=== PATIENT | male | born 1955 | race Caucasian/White ===

== ENCOUNTER → 2019-09-07 08:03 | Outpatient (BNVA) | payer OTHER, SELFPAY | PROVIDERS: Family Provider Family Medicine; PCP Family Medicine; Visit Provider Urology | DX: R33.9 Retention of urine, unspecified (principal); N30.80 Other cystitis without hematuria; N40.1 Benign prostatic hyperplasia with lower urinary tract symptoms; N13.8 Other obstructive and reflux uropathy | CPT/HCPCS: 81001 ==

== ENCOUNTER → 2020-09-27 07:55 | Outpatient (BNVA) | payer MEDICARE, SELFPAY | PROVIDERS: Family Provider Family Medicine; PCP Family Medicine; Visit Provider Urology | DX: Z12.5 Encounter for screening for malignant neoplasm of prostate (principal); N30.80 Other cystitis without hematuria; N40.1 Benign prostatic hyperplasia with lower urinary tract symptoms; N13.8 Other obstructive and reflux uropathy; R33.9 Retention of urine, unspecified; R35.1 Nocturia | CPT/HCPCS: 81003; G0103 ==

== ENCOUNTER 2021-01-30 14:34 | Outpatient (CLI) | payer MEDICARE, SELFPAY ==
--- NOTE | 2021-01-30 14:41 | XR_ITS ---
WS: [id number] HAND RIGHT TECHNIQUE: 3 views of the right hand CLINICAL INFORMATION: RIGHT FINGER/WRIST INJURY COMPARISON: None. FINDINGS: Transverse fracture involving the distal fourth phalanx at the base. Mild widening with dorsal displa cement of the distal fragment on the lateral view measuring 3 mm. No other visualized fractures. Advanced osteoarthritis first CMC and STT. XR/XR hand RT min 3V* [id number] IMPRESSION: Transverse slightly displaced fracture involving the distal phalanx fourth fing er.
--- NOTE | 2021-01-30 14:41 | XR_ITS ---
WS: [id number] ANKLE LEFT TECHNIQUE: 3 views of the left ankle CLINICAL INFORMATION: LEFT ANKLE PAIN COMPARISON: FINDINGS: Postoperative changes prior total ankle arthroplasty. Stable hardware with peripheral lucency about t he tibial component progressed compared to the prior examination. Talar dome prosthesis is unchanged with chronic flattening of the talar dome. Sclerosis of the talocalcaneal articulation. Stable loose bodies along the posterior tibia at the tibiotalar joint. Advanced subchondral cystic changes involvi ng the medial and lateral malleolus progressed compared to . XR/XR ankle LT min 3V* [id number] IMPRESSION: 1. Postoperative changes left total ankle arthroplasty with increased lucency about the tibial component. Talar prosthesis appears unchanged. 2. Sclerosis and subchondral cystic changes involving the medial and lateral m alleolus have progressed. 3. Well-circumscribed loose bodies along the retrotalar recess.
== END 2021-01-30 14:35 | disposition home or self-care (01) ==
PROVIDERS: PCP Family Medicine; Visit Provider Family Medicine
DX: M25.572 Pain in left ankle and joints of left foot (principal); S62.634A Displaced fracture of distal phalanx of right ring finger, initial encounter for closed fracture; X58.XXXA Exposure to other specified factors, initial encounter
CPT/HCPCS: 73130; 73610

== ENCOUNTER 2021-03-27 09:18 | Outpatient (CLI) | payer MEDICARE, SELFPAY ==
--- NOTE | 2021-03-27 09:32 | XR_ITS ---
WS: [id number] ABDOMEN KUB CLINICAL INFORMATION: Renal/ureteral calculi. COMPARISON: None. FINDINGS: Lumbar scoliosis convex right. Bilateral renal parenchymal calculi partially visualized sim ilar to 2019. This is partially obscured by bowel. Largest calculus measure approximately 7 mm on the right. No visualized ureteral calculi. Normal bowel gas pattern. Scattered air and normal caliber small and large bowel. No significant leigh l distention. XR/XR KUB [id number] Impression: Bilateral renal parenchymal calculi partially visualized similar to 2019. This is partially obscured by bowel. This can be further evaluated with renal stone protocol CT.
== END 2021-03-27 09:19 | disposition home or self-care (01) ==
PROVIDERS: PCP Family Medicine; Visit Provider Urology
DX: N20.2 Calculus of kidney with calculus of ureter (principal)
CPT/HCPCS: 74018

== ENCOUNTER 2021-05-02 12:38 | Outpatient (CLI) | payer MEDICARE, SELFPAY ==
--- NOTE | 2021-05-02 12:43 | XR_ITS ---
WS: [id number] LEFT SHOULDER: 3 VIEW(S) TECHNIQUE: Internal and external rotation with Y view. HISTORY: UNSPECIFIED INJURY OF LEFT SHOULDER AND UPPER ARM COMPARISON: None available. No acute fracture identified. There is mild deformity and flattening of the posterior lateral humeral head and subchondral cystic changes. The flattening may be due to remote nondisplaced fracture with healing. There is also moderate glenohumeral joint space narrowing with osteophytes and bony sclerosi s. There are several small loose bodies or calcific densities in the axillary pouch. Severe narrowing of the AC joint with mild bony hypertrophy. Mild chondrocalcinosis is noted along the superior humer al head. LEFT upper lung is clear. XR/XR shoulder LT min 2V* [id number] IMPRESSION: 1. Severe glenohumeral joint osteoarthritis. 2. Moderate AC joint arthritis. 3. Mild flattening and deformity with subchondral cystic changes along the pos terior lateral humeral head. Suspect remote fracture with healing. 4. Several small loose bodies in the axillary pouch.
== END 2021-05-02 12:39 | disposition home or self-care (01) ==
PROVIDERS: PCP Family Medicine; Visit Provider Family Medicine
DX: S49.92XA Unspecified injury of left shoulder and upper arm, initial encounter (principal); X58.XXXA Exposure to other specified factors, initial encounter; M19.012 Primary osteoarthritis, left shoulder
CPT/HCPCS: 73030

== ENCOUNTER 2021-05-14 10:02 | Outpatient (CLI) | payer MEDICARE, SELFPAY ==
--- NOTE | 2021-05-14 10:14 | XR_ITS ---
WS: [id number] XR ankle RT min 3V* [id number] REASON FOR EXAM: RT ANKLE PAIN FINDINGS: Complex right ankle with arthroplasty. Comparison examination 01/18/2009. Compared to the previous examination a large lucent area has developed in the lateral malleolus. Sarah lar abnormality in the medial malleolus. Significant lucency has developed around the lateral margin of the articular plate of the tibial component of the arthroplasty. Severe degenerative arthropathy has developed in the subtalar joint compared to the previous examinat ion. Cystic changes developing in the bone underlying the talar component of the arthroplasty. The an terior margin of the talar component is marginated by increased lucency in the bone. XR/XR ankle RT min 3V* [id number] IMPRESSION: Complex right ankle with arthroplasty and progressive bone and joint changes as above.
--- NOTE | 2021-05-14 10:14 | XR_ITS ---
WS: [id number] XR ankle LT min 3V* [id number] REASON FOR EXAM: LT ANKLE PAIN FINDINGS: Complex left ankle with previous arthroplasty. Examination is essentially unchanged compared to 2020. Significant lucency around the tibial component of the arthroplasty. Severe degenerative arthropathy in the subtalar joint and the talonavicular joint. No fracture identified. No change in position of the arthroplasty components. XR/XR ankle LT min 3V* [id number] IMPRESSION: Complex left ankle unchanged compared to the previous study.
== END 2021-05-14 10:03 | disposition home or self-care (01) ==
PROVIDERS: PCP Family Medicine; Visit Provider Family Medicine
DX: M25.571 Pain in right ankle and joints of right foot (principal); M25.572 Pain in left ankle and joints of left foot; N40.1 Benign prostatic hyperplasia with lower urinary tract symptoms; N13.8 Other obstructive and reflux uropathy
CPT/HCPCS: 73610; 81003

== ENCOUNTER 2021-05-14 10:05 | Outpatient (CLI) | payer MEDICARE, SELFPAY ==
--- NOTE | 2021-05-14 10:11 | XR_ITS ---
WS: [id number] XR KUB [id number] REASON FOR EXAM: KIDNEY STONES FINDINGS: Large amount of stool in the colon obscures the kidneys. As best as can be ascertained there are phuong l calculi bilaterally as were noted on the previous examination of 03/27/2021. No calculus along the a bdominal or pelvic course of the ureters is identified and no calculus is noted in the bladder region . No other significant abnormality. XR/XR KUB [id number] IMPRESSION: Likely unchanged intrarenal calculi.
== END 2021-05-14 10:06 | disposition home or self-care (01) ==
PROVIDERS: PCP Family Medicine; Visit Provider Urology
DX: N20.0 Calculus of kidney (principal)
CPT/HCPCS: 74018

== ENCOUNTER → 2021-10-10 08:17 | Outpatient (BNVA) | payer MEDICARE, SELFPAY | PROVIDERS: PCP Family Medicine; Visit Provider Urology | DX: R33.9 Retention of urine, unspecified (principal) | CPT/HCPCS: 81003 ==

== ENCOUNTER → 2022-03-20 07:28 | Outpatient (BNVA) | payer MEDICARE, SELFPAY | PROVIDERS: PCP Family Medicine; Visit Provider Urology | DX: N40.1 Benign prostatic hyperplasia with lower urinary tract symptoms (principal); R35.1 Nocturia; R33.9 Retention of urine, unspecified; N20.0 Calculus of kidney | CPT/HCPCS: 51798; 81003; 99212 ==

== ENCOUNTER → 2022-07-01 15:45 | Outpatient (BNVA) | payer MEDICARE, SELFPAY | PROVIDERS: PCP Family Medicine; Visit Provider Urology | DX: N40.1 Benign prostatic hyperplasia with lower urinary tract symptoms (principal); N13.8 Other obstructive and reflux uropathy; R33.9 Retention of urine, unspecified; N20.0 Calculus of kidney; R35.1 Nocturia | CPT/HCPCS: 51741; 51798; 52000; 99213 ==

== ENCOUNTER 2022-07-15 08:42 | Observation (INO) | payer MEDICARE, SELFPAY ==
[2022-07-14 16:29] VITALS: BMI 26.1
[2022-07-15] VITALS (22 sets, daily range): BP systolic 89–135; BP diastolic 22–96; PULSE 56–94; RESP 12–18; TEMP 36.3–36.7; O2SAT 91–99
--- NOTE | 2022-07-15 06:01 | P.HPUD_ITS ---
Surgery/Procedure H&P Update DATE OF PROCEDURE: July 15, 2022 DATE H&P PERFORMED: 07/01/22 H&P UPDATE INFORMATION: I have reviewed H&P completed within last 30 days, I have examined patient prior to procedure, No changes to prior documentation and H&P is in [facility] [place] on date indicated PLANNED PROCEDURE: Operation Date: 07/15/22 07:00 Proposed Procedures p TRANSURETHRAL RESECTION PROSTATE 07553 N40.1,N13.8(Not Applicable) - Adeel Griffin MD s Cystoscopy(Not Applicable) - Adeel Griffin MD
[2022-07-15] MEDS: sodium chloride 0.9% 1,000 ML 30 ML IV (06:38)
[2022-07-15 07:04] LABS: Anion Gap 13.4 (5-19); Blood Urea Nitrogen 20 mg/dL (8-23); Calcium 9.7 mg/dL (8.5-10.5); Carbon Dioxide 25 mmol/L (22-29); Chloride 103 mmol/L (98-107); Glomerular Filtration Rate 74.1 mL/min (90-130); Glucose 105 mg/dL (65-115); Osmolality Calculated 287 mOsm/kg (285-295); Potassium 4.4 mmol/L (3.5-5.1); Sodium 137 mmol/L (136-145)
[2022-07-15] MEDS: levofloxacin-dextrose 5 % 500 MG/100 ML PREMIX 100 MG IV (07:38)
--- NOTE | 2022-07-15 07:49 | ANES.PREANE2 ---
Pre-Anesthetic Assessment Height/Weight: Height 1.85 m Weight 89.811 kg Temp Pulse Resp BP Pulse Ox O2 Del Method 97.4 F L 75 18 129/82 92 07/15/22 06:16 07/15/22 06:16 07/15/22 06:16 07/15/22 06:16 07/15/22 06:16 07/15/22 06:36 Preop Diagnosis: Refractory BPH/obstruction Operation Date: 07/15/22 07:00 Proposed Procedures p TRANSURETHRAL RESECTION PROSTATE 20634 N40.1,N13.8(Not Applicable) - Adeel Griffin MD s Cystoscopy(Not Applicable) - Adeel Griffin MD Familial anesthetic complications: none Was Beta Frank taken within 24 hours: N/A Was Clonidine taken within 24 hours: N/A Last intake: Intake Last Liquid Date 07/14/22 Last Liquid Time 22:00 Last Solid Date 07/14/22 Last Solid Time 19:00 Social No alcohol and No tobacco Exam alert, oriented x 3, clear to auscultation bilaterally and regular rate & rhythm Airway Submandibular: within normal limits Cervical ROM: within normal limits Mallampati: Class II Dentition: full Comments: Comments: narrow palate CV/HEM Hypertension Neuropsych Seizure (temporal lobe) Anesthetic Plan ASA status: 2 Anesthesia: General Medications/Allergies Home Medications Medication Instructions Recorded Confirmed Last Taken Type finasteride 5 mg tablet 5 mg PO DAILY #90 tabs 08/14/19 07/15/22 07/14/22 Rx acyclovir 800 mg tablet 800 mg PO QDAY 09/07/19 07/15/22 07/14/22 History duloxetine 60 mg capsule,delayed 60 mg PO QDAY 09/07/19 07/15/22 07/14/22 History release lacosamide 200 mg tablet (Vimpat) 200 mg PO BID 09/07/19 07/15/22 07/14/22 History lisinopril 5 mg tablet 5 mg PO QDAY 09/07/19 07/15/22 07/14/22 History tamsulosin 0.4 mg capsule 0.4 mg PO QDAY 09/07/19 07/15/22 07/14/22 History potassium citrate 10 mEq (1,080 10 meq PO BID #180 tabs 10/14/21 07/15/22 07/14/22 Rx mg) tablet,extended release Allergies Allergy/AdvReac Type Severity Reaction Status Date / Time Iodinated Contrast Media Allergy NA Verified 07/01/22 15:57 Current Medications Generic Name Dose Route Start Last Admin Trade Name Radha PRN Reason Stop Dose Admin Sodium Chloride 1,000 mls @ 30 mls/hr 07/15/22 06:15 07/15/22 06:38 Sodium Chloride 0.9% IV 07/16/22 06:14 30 mls/hr .Q24H DELON Administration PFSH Anesthesia Medical History Bilateral renal stones BPH with obstruction/lower urinary tract symptoms Cystitis cystica Nocturia Prostatitis Urinary retention Intermittent. Related to overfilling of the bladder. Consistent at night if he holds it too long Surgical History (Updated 07/01/22 @ 15:58 by Anika Almodovar LPN) H/O total ankle replacement left History of appendectomy History of lumbar laminectomy History of replacement of both ankle joints Family History Mother , at age 54 Cancer lung Father , at age 83 Pulmonary embolism Social History Smoking and tobacco status: never smoked Alcohol intake: current Alcohol intake frequency: few times a month Alcohol type: wine Marital status: Current occupational status: retired History of recent travel: No Data Anesthesia 07/15/22 06:29 BMP 07/15/22 06:29 Sodium 137 Potassium 4.4 Chloride 103 Carbon Dioxide 25 BUN 20 Creatinine 1.0 Glucose 105 Calcium 9.7 Cardiac Studies: No Data to Display
--- NOTE | 2022-07-15 08:23 | P.OP_ITS ---
Operative Report Date of procedure: July 15, 2022 Pre-op diagnosis: Refractory BPH/obstruction Post-op diagnosis: Refractory BPH/obstruction Procedure done: Cystoscopy, transurethral resection/vaporization prostate Specimens removed/disposition: Prostate chips Pathology: Prostate chips Surgeon: Gaby Estimated blood loss: Minimal Urine output: Not measured Complications: None Findings: Anesthesia: General Condition: Stable Disposition: PACU Intraoperative findings: * About 80% of prostate tissue was treated with vaporization button probe and 20% resected * Wide open with good hemostasis at the completion of the procedure. Brief History: Tony is a very pleasant 67-year-old white male with progressive bladder outlet obstructive symptom over the years. Has had multiple episodes of acute urinary retention generally associated with overfilling. His normal bladder capacity was reduced. He performed SCIC periodically associated with retention. He had been on dual medical therapy for an extended period of time with improvement initially but less so over time. No evidence of prostate cancer on TORRES or PSA. CYSTOSCOPY revealed relatively small capacity bladder with some chronic inflammatory changes of unclear etiology. No evidence of malignancy Procedure: After routine preoperative evaluation examination and obtaining of informed consent he was taken to the operating suite on 07/15/2022 where general anesthesia was administered without difficulty after appropriate timeout was performed, SCDs confirmed to be functioning, preoperative antibiotics administered, beta-lenka protocol confirmed. Prepped and draped in the usual sterile fashion in dorsolithotomy position. 21 Swedish cystoscope with 30 degree lens was introduced into the urethra meatus and advanced to the bladder without difficulty. Bladder was systematically examined. Cystoscopic findings in clinic were confirmed. Bladder neck was well away from the trigone. Verumontanum appeared normal. Urethra was then calibrated with [place] sounds and easily accommodated 30 Swedish. 2% lidocaine jelly was instilled into the urethra. A 25 Swedish continuous-flow resectoscope sheath with visual obturator in place was advanced into the bladder without difficulty. Landmarks were again ascertained. The bipolar gyrus system was utilized for resection and vaporization. Super loop was utilized first for resection circumferentially at the bladder neck of the intravesically protruding portion of the prostate. Resection was then directed from 12:00 to 7 o'clock position from the bladder neck out to but not distal to the level of the verumontanum. Resection was then directed from 12:00 to 5 o'clock position the same longitudinal extent and depth. The floor the prostate was harvested. There remained some residual tissue at the apex of the prostate at the level of verumontanum which was carefully trimmed away. Attention was paid to avoiding dissection distal to the verumontanum. The button probe was utilized for vaporization of the bulk of the tissue and sculpting of the prostatic fossa at the completion of the procedure. Roughly 80% of the tissue was vaporized and 20% resected all chips were evacuated from the bladder. Orifices and tissue distal to the verumontanum were confirmed to be uninvolved in the resection. Hemostasis was good and all chips were confirmed to be evacuated. Bladder was drained with a 22 Swedish three-way Smith catheter. Light CBI with normal saline was initiated and the efflux remained clear He tolerated procedure well without complications and was awakened in the operating room and returned to the recovery room in stable condition. PLANS: 1. Admit to observation status on MedSur, wean CBI as tolerated 2. Anticipate Smith catheter removal on postoperative day #1 and likely discharge later tomorrow afternoon
[2022-07-15] MEDS: fentaNYL 50 mcg/mL INJ 2mL IVP (08:39)
--- NOTE | 2022-07-15 08:39 | P.PCN_ITS ---
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
--- NOTE | 2022-07-15 08:39 | PM.PACU ---
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
[2022-07-15] MEDS: HYDROmorphone 1 mg/mL INJ 1 mL 0.5 MG IVP ×2 (08:50→09:06)
[2022-07-15] MEDS: D5-NS 0.45% + KCL 20 mEq 20 MEQ/1,000 ML BAG 30 MEQ IV (10:08)
[2022-07-15] MEDS: duloxetine 60 mg Capsule PO (10:09)
[2022-07-15] MEDS: acyclovir 800 mg Tablet PO (10:09)
[2022-07-15] MEDS: finasteride 5 mg Tablet PO (10:09)
[2022-07-15] MEDS: tamsulosin 0.4 mg Capsule PO (10:09)
[2022-07-15] MEDS: phenazopyridine 100 mg Tablet 200 MG PO ×2 (10:09→18:02)
[2022-07-15] MEDS: docusate sodium 100 mg Capsule PO ×2 (10:10→18:02)
[2022-07-15] MEDS: HYDROcodone-acetaminophen 5-325 mg Tablet 1 TAB PO ×3 (10:10→20:32)
--- NOTE | 2022-07-15 11:56 | ANE.PACU2 ---
Inpatient post-anesthesia follow up: Airway intact: Yes Vital signs: Temperature 97.6 F Pulse Rate 67 Respiratory Rate 16 Blood Pressure 108/62 Pulse Oximetry 94 Oxygen Delivery Me thod Nasal Cannula Oxygen Flow Rate 2 Fraction of Inspir ed Oxygen Hydration adequate: Yes Nausea and vomiting: No Pain level: 3 Mental status: Baseline
[2022-07-15] MEDS: lacosamide 50 mg Tablet 200 MG PO (18:13)
--- NOTE | 2022-07-15 18:24 | PC.NURSE ---
PATIENT HAD BLADDER SPASMS WHEN FIRST ARRIVING TO THE FLOOR. THIS NURSE ADMINISTERED PYRIDIUM AND HYDROCODONE. BLADDER SPASMS HAVE GREATLY DECREASED, AND PAIN HAS IMPROVED. CBI RUNNING AT A VERY SLOW DRIP, ALMOST OFF. NO HEMATURIA OR CLOTS. NO BLADDER DISTENTION. URINE ORANGE FROM PYRIDIUM. GOOD INTAKE AND OUTPUT. CURRENTLY RESTING IN BED.
[2022-07-16] VITALS: BP 107/61; PULSE 75; RESP 14; TEMP 36.6; O2SAT 90
[2022-07-16 03:42] VITALS: BP 119/68; PULSE 73; RESP 16; TEMP 36.7; O2SAT 93
--- NOTE | 2022-07-16 05:22 | PC.NURSE ---
Pt had uneventful night. Did have to titrate CBI up slightly to slow drip when practically off due to deep orange color change to the urine. No clots, no need for irrigation. One pain pill given and patient stated he was feeling much better and was able to turn about in bed with out discomfort. Approximately half of a bag used, and 2100ml out for the shift.
[2022-07-16 07:47] VITALS: BP 123/78; PULSE 65; RESP 16; TEMP 37.1; O2SAT 92
[2022-07-16] MEDS: acyclovir 800 mg Tablet PO (08:26)
[2022-07-16] MEDS: phenazopyridine 100 mg Tablet 200 MG PO (08:26)
[2022-07-16] MEDS: duloxetine 60 mg Capsule PO (08:27)
[2022-07-16] MEDS: docusate sodium 100 mg Capsule PO (08:27)
[2022-07-16] MEDS: lisinopril 5 mg Tablet PO (08:27)
[2022-07-16] MEDS: finasteride 5 mg Tablet PO (08:27)
[2022-07-16] MEDS: levofloxacin-dextrose 5 % 500 MG/100 ML PREMIX 100 MG IV (08:27)
[2022-07-16] MEDS: tamsulosin 0.4 mg Capsule PO (08:27)
[2022-07-16] MEDS: potassium chloride ER 10 mEq Tablet PO (08:28)
--- NOTE | 2022-07-16 10:53 | PC.CHAP ---
Pastoral Care Encounter/Spiritual Assessment Type of Contact [] Declined freight engineer visit [] Patient/Family/Request visit [] Outpatient visit [] Follow-up visit [] Physician referral [] Code/Alert [x ] Routine visit [] Staff referral [] Actively dying [] Patient sleeping [] Family support [] [] Out of room [] Palliative care [] [x] Receiving care in room [] Pre-surgical visit [] Trauma [] Long length of stay [] ICU visit [] Other: Relational/Emotional Strength [x] Patient feels connected with others/family/visitors/staff [] Distress [] Loneliness/isolation [] Abandonment Spirituality of Patient [x] Person of Reyna [] Attends Roman Catholic of their Reyna [x] Believes in Prayer [] Reads Bible or Jew materials [] There are Spiritual issues to be addressed Road Tester Interventions [x] Prayer [x] Active listening [x] Non-anxious presence [x] Spiritual/emotional support [] Crisis/trauma care [x] Spiritual counseling [] Bereavement support [] Provided bereavement packet [] Provided Bible/devotional materials [] Provided toy/stuffed animal, coloring book to patient or family member [] Provided Communion [] Anointing/[place] [] Salvation [x] Completed spiritual assessment [] Other: Impact on Illness or Injury [] Angry [] Fearful [] Anxious [] Often cries [] Exhaustion [] Unable to work [] Unable to attend jainism [] Unable to walk/stand [] Unable to read [] Unable to drive [] Unable to eat/drink [] Unable to sleep [] Unable to be with family [] Patient intubated [] Other: Summary prostate surgery went well has a good attitude going home +1 Time spent with patient 10 mins
[2022-07-16 11:45] VITALS: BP 157/100; PULSE 76; RESP 16; TEMP 36.6; O2SAT 92
--- NOTE | 2022-07-16 12:00 | PM.DCS ---
Discharge Providers Date of Admission: 07/15/22 08:42 Date of Discharge: July 17, 2022 Attending Provider at Admission: Adeel Griffin MD Attending Provider at Discharge: Adeel Griffin MD Primary Care Provider: Irish Sanchez MD Reason for Visit Reason for Visit: Refractory bladder outlet obstructive symptoms Brief History: Tony is a very pleasant 67-year-old white male with a longstanding history of progressive bladder outlet obstructive symptoms with initial improvement on medical therapy but later not as much. He has had multiple episodes of recurrent retention. Clear relationship between overfilling and incomplete emptying at times. Usually happens at night. His overall normal capacity is about 150 cc up to 300 cc without significant retention but has had generally in the range of 400+ cc consistently causing problems with emptying. Cystoscopy did show an enlarged prostate with intravesical protrusion. We did discuss the possibility that there was more to his voiding related to bladder function but that has not been able to be demonstrated. He has a good stream and empties well most of the time despite his low capacity. Cystoscopy is also revealed some inflammatory changes in the bladder of unclear etiology but no significant pathology identified. Ultimately elected to proceed with cystoscopy, transurethral resection/vaporization of the prostate. Hospital Course Hospital Course He was admitted through Outpatient Surgery for transurethral resection/vaporization of prostate which went very well. Prostatic fossa was wide open at the completion of the procedure and hemostasis was good. His bladder did show some friability with repetitive filling and draining of the bladder but no significant findings otherwise. Postoperatively his urine remained clear and CBI was weaned off on the night of the procedure. Catheter was removed on postop day #1 but he failed to void spontaneously. In-N-Out cath was performed showing 600 cc. It was quite uncomfortable for him. Catheter was not left indwelling. He was discharged on postoperative day #1 in stable condition. He is quite familiar with self-catheterization and he was given a selection of catheters to use at home and to record voided and postvoid residual volumes routinely. He will contact me a few days to let me know how he is doing on spontaneous voiding and catheterization. Encouraged him to call at any time if he is having difficulty passing a catheter or prefers to leave a catheter in if it is persistent. We will plan on follow-up in 6 weeks for routine post TUR evaluation. Physical Exam Narrative: Alert oriented no acute distress pleasant cooperative exam Unlabored respiration Urines clear No untoward findings. Urinary Catheter Management: 3-way Urethral CBI: Cath Placed During This Visit: yes Reason for Continuing Indwelling Catheter: Perioperative Use in Selected Surgeries Urinary Catheter Date of Insertion: 07/15/22 Urinary Catheter Time of Insertion: 08:17 Discharge Data Studies Completed and Pending Pending at discharge Category Date Time Status Pathology: Surgical [PTH] Routine Pth 07/15/22 08:32 Received Laboratory Results Sodium 137 mmol/L (136-145) 07/15/22 06:29 Potassium 4.4 mmol/L (3.5-5.1) 07/15/22 06:29 Chloride 103 mmol/L (98-107) 07/15/22 06:29 Carbon Dioxide 25 mmol/L (22-29) 07/15/22 06:29 Anion Gap 13.4 (5-19) 07/15/22 06:29 BUN 20 mg/dL (8-23) 07/15/22 06:29 Creatinine 1.0 mg/dL (0.7-1.2) 07/15/22 06:29 GFR Calculation 74.1 mL/min (90-130) L 07/15/22 06:29 Glucose 105 mg/dL (65-115) 07/15/22 06:29 Calculated Osmolality 287 mOsm/kg (285-295) 07/15/22 06:29 Calcium 9.7 mg/dL (8.5-10.5) 07/15/22 06:29 Vitals Last Vital Signs Temp 97.9 F 07/16/22 11:45 Pulse 76 07/16/22 11:45 Resp 16 07/16/22 11:45 BP 157/100 07/16/22 11:45 Pulse Ox 92 07/16/22 11:45 O2 Del Method 07/16/22 11:45 O2 Flow Rate 2 07/15/22 17:49 Discharge Plan Discharge Patient Disposition: Home Condition: Stable Prescriptions: New levofloxacin 250 mg tablet 250 mg PO DAILY Qty: 7 1RF Continued lisinopril 5 mg tablet 5 mg PO QDAY duloxetine 60 mg capsule,delayed release(DR/EC) 60 mg PO QDAY Vimpat 200 mg tablet 200 mg PO BID acyclovir 800 mg tablet 800 mg PO QDAY tamsulosin 0.4 mg capsule 0.4 mg PO QDAY finasteride 5 mg tablet 5 mg PO DAILY Qty: 90 3RF potassium citrate 10 mEq (1,080 mg) tablet extended release 10 meq PO BID Qty: 180 3RF Discharge Orders: Discharge Order (Routine); Ordered 07/16/22 Ordered By: Adeel Griffin Referrals: Adeel Griffin MD [Physician] - 6 Weeks (Dr. Griffin's office will call you with appointment date and time. Thank you!) Discharge Diet: Usual diet Discharge Activity: Limit activity as instructed Patient Instructions: Levofloxacin (By mouth), Transurethral Prostatectomy (GEN), Opioid Safety Activity Restrictions/Additional Instructions: 1. Self-catheterization performed as needed. Your choice of catheter type. Please call if you have concerns about any particular catheter and we can try some other models. Daily etc. 2. Continue medications for prostate until voiding has been restored normal 3. Cover with Levaquin 250 mg daily. 1 week supply was sent with 1 refill. 4. Please take it seriously regarding limiting your activity. 3 weeks minimum 5. Lets communicate in the next few days to see how the voiding is going. We will plan on a follow-up in about 6 weeks roughly everything is going well prior to that time. Discharge Attestations Time Spent in Discharge Care*: less than 30 min Quality Metrics Clinical Quality Measures [ No reported AMI, CVA or VTE this stay] Coding Level of Care Code Acute Chg FW MARITZA note
== END 2022-07-16 13:49 | disposition home or self-care (01) ==
LOC: MEDSURG 08:42
PROVIDERS: Anesthesiology; Admitting Provider Urology; PCP Family Medicine; Visit Provider Urology
PROC: 0VT08ZZ Resection of Prostate, Via Natural or Artificial Opening Endoscopic (ICD-10-PCS; CPT 52601; principal; 2022-07-15 07:00)
PROC: 0TJB8ZZ Inspection of Bladder, Via Natural or Artificial Opening Endoscopic (ICD-10-PCS; CPT 52000; 2022-07-15 07:00)
DX: N40.1 Benign prostatic hyperplasia with lower urinary tract symptoms (principal); N13.8 Other obstructive and reflux uropathy; I10 Essential (primary) hypertension
CPT/HCPCS: 52601; 80048; 88305; G0378; J1170; J1956; J2405; J2704; J2710; J3010; J3490; J7030; J8499

== ENCOUNTER → 2022-08-26 14:00 | Outpatient (BNVA) | payer MEDICARE, SELFPAY | PROVIDERS: PCP Family Medicine; Visit Provider Urology | DX: N40.1 Benign prostatic hyperplasia with lower urinary tract symptoms (principal); N13.8 Other obstructive and reflux uropathy; R33.9 Retention of urine, unspecified; N30.90 Cystitis, unspecified without hematuria | CPT/HCPCS: 51741; 51798; 81003; 87086; 99024 ==

== ENCOUNTER → 2022-12-16 13:22 | Outpatient (BNVA) | payer MEDICARE, SELFPAY | PROVIDERS: PCP Family Medicine; Visit Provider Urology | DX: N30.90 Cystitis, unspecified without hematuria (principal); N40.1 Benign prostatic hyperplasia with lower urinary tract symptoms; N13.8 Other obstructive and reflux uropathy | CPT/HCPCS: 51741; 51798; 99212 ==

== ENCOUNTER 2023-01-07 14:24 | Outpatient (CLI) | payer MEDICARE, SELFPAY ==
--- NOTE | 2023-01-07 14:40 | XR_ITS ---
WS: [id number] Exam: XR ankle LT min 3V* [id number] Date/Time of Exam: 01/07/2023 2:48 PM Reason For Exam: OSTEOARTHRITIS OF LEFT ANKLE AND FOOT Comparison 05/14/2021. Ankle mortise prosthesis in place. There has been revision since the previous exam. A screw courses t hrough the long axis of the lower fibula. There is also a screw in the medial malleolus bridging a no nunion fracture. There is some separation involving the tibial and talar components of the prosthesis . Significance of this is undetermined. No acute fracture is seen. Numerous soft tissue ossification seen about the mortise of the ankle. Degenerative changes in the subtalar joints and midfoot joints. XR/XR ankle LT min 3V* [id number] IMPRESSION: 1. Revision of previously noted ankle mortise replacement with new tibial and t alar components. There is some separation of the tibial talar component but the significance of this is a undetermined. Also hardware noted in the distal fibu la and medial malleolus. Nonunion medial malleolar fracture noted. 2. No acute fracture is seen.
== END 2023-01-07 14:25 | disposition home or self-care (01) ==
PROVIDERS: PCP Family Medicine; Visit Provider Family Medicine
DX: M19.072 Primary osteoarthritis, left ankle and foot (principal); Z98.890 Other specified postprocedural states
CPT/HCPCS: 73610

== ENCOUNTER → 2023-02-04 07:44 | Outpatient (BNVA) | payer MEDICARE, SELFPAY | PROVIDERS: PCP Family Medicine; Visit Provider Urology | DX: N40.1 Benign prostatic hyperplasia with lower urinary tract symptoms (principal); N30.90 Cystitis, unspecified without hematuria; N13.8 Other obstructive and reflux uropathy | CPT/HCPCS: 51741; 51798; 52000; 81003 ==

== ENCOUNTER → 2024-03-21 15:20 | Outpatient (BNVA) | payer MEDICARE, SELFPAY | PROVIDERS: PCP Family Medicine; Visit Provider Dermatology | DX: L82.0 Inflamed seborrheic keratosis (principal); L82.1 Other seborrheic keratosis; L57.0 Actinic keratosis; D48.5 Neoplasm of uncertain behavior of skin; L73.8 Other specified follicular disorders | CPT/HCPCS: 11102; 17000; 17110; 99203 ==

== ENCOUNTER 2024-07-27 10:41 | Outpatient (CLI) | payer MEDICARE, SELFPAY ==
--- NOTE | 2024-07-27 10:46 | XR_ITS ---
WS: [id number] Left ankle, 3 views, 07/27/2024 Clinical Data: PAIN IN LEFT ANKLE AND JOINTS OF LEFT FOOT Comparison: Left ankle, 01/07/2023 Findings: There is an prosthesis replacing the left ankle mortise. There are orthopedic screws in the distal le ft fibula and in the medial malleolus. There is 1.6 cm separation between the metallic portions of th e ankle prosthesis unchanged. There is fragmentation of the talus unchanged. There are many small bony fragments surrounding the an kle prosthesis. XR/XR ankle LT 2V [id number] Impression: Complex left ankle prosthesis unchanged.
== END 2024-07-27 10:42 | disposition home or self-care (01) ==
PROVIDERS: PCP Family Medicine; Visit Provider Family Medicine
DX: S92.102D Unspecified fracture of left talus, subsequent encounter for fracture with routine healing (principal); Z96.662 Presence of left artificial ankle joint
CPT/HCPCS: 73600

== ENCOUNTER → 2025-07-09 08:23 | Outpatient (BNVA) | payer MEDICARE, SELFPAY | PROVIDERS: PCP Family Medicine; Visit Provider Dermatology | DX: L73.8 Other specified follicular disorders (principal); L82.1 Other seborrheic keratosis; D18.01 Hemangioma of skin and subcutaneous tissue; L57.8 Other skin changes due to chronic exposure to nonionizing radiation; L82.0 Inflamed seborrheic keratosis; L53.8 Other specified erythematous conditions; L57.0 Actinic keratosis | CPT/HCPCS: 17000; 17110; 99213 ==